=== PATIENT | male | born 1995 | race African-American/Black ===

== ENCOUNTER 2022-05-24 14:32 | Emergency (ER) | payer MEDICAID, OTHER ==
[~2022-05-24] VITALS: Ht 180.3 cm; Wt 100.0 kg
[2022-05-24] MEDS ORDERED: ONDANSETRON HCL 4MG/2ML INJ IV ONE (15:30)
[2022-05-24] MEDS ORDERED: SODIUM CHLORIDE 0.9% 1,000 ML IV ONE ×2 (15:30)
[2022-05-24] MEDS ORDERED: KETOROLAC 15MG/ML VIAL IV ONE (15:45)
[2022-05-24 16:26] LABS: BASOPHILS % 0.6 % (0.0-2.0); CHLORIDE 108 mEq/L (98-107); EOSINOPHILS % 1.4 % (0.0-5.0); HEMATOCRIT. 43.7 % (42.0-52.0); LYMPHOCYTES % 24.6 % (20.0-50.0); MEAN CORPUSCULAR HEMOGLOBIN 31.3 pg (28.0-32.0); MEAN CORPUSCULAR VOLUME 91.1 fL (80.0-94.0); MEAN PLATELET VOLUME 8.4 fl (7.4-10.4); MONOCYTES % 7.3 % (2.0-8.0); NEUTROPHILS % 66.1 % (40.0-76.0); PLATELET 272 x1000/uL (130-400); RED CELL DISTRIBUTION WIDTH 14.2 % (11.6-14.6)
[2022-05-24 16:33] LABS: ETHANOL BLOOD < 10 mg/dL
[2022-05-24] MEDS ORDERED: ONDANSETRON HCL 4MG/2ML INJ IV NR (17:15)
[2022-05-24 19:52] LABS: CLARITY URINE CLEAR (CLEAR); COLOR URINE YELLOW (YELLOW); KETONES URINE TRACE (NEGATIVE); LEUKOCYTE ESTERASE URINE NEGATIVE (NEGATIVE); NITRITE URINE NEGATIVE (NEGATIVE); OCCULT BLOOD URINE NEGATIVE (NEGATIVE); PH URINE 6.5 (4.5-8.0); PROTEIN URINE NEGATIVE (NEGATIVE); SPECIFIC GRAVITY URINE 1.028 (1.005-1.030)
[2022-05-24 20:03] LABS: *AMPHETAMINES SCREEN URINE NEGATIVE (NEGATIVE); *BARBITURATES SCREEN URINE NEGATIVE (NEGATIVE); *BENZODIAZEPINES SCREEN URINE NEGATIVE (NEGATIVE); *COCAINE SCREEN URINE NEGATIVE (NEGATIVE); CANNABINOID URINE SCREEN NEGATIVE (NEGATIVE); METHADONE URINE SCREEN NEGATIVE (NEGATIVE); OPIATES URINE SCREEN NEGATIVE (NEGATIVE); PHENCYCLIDINE URINE SCREEN NEGATIVE (NEGATIVE)
[2022-05-25] MEDS: SERTRALINE HCL 50MG TABLET PO SCH (11:19)
[2022-05-26 10:40] VITALS: BP 119/77
[2022-05-26] MEDS: SERTRALINE HCL 50MG TABLET PO SCH (10:48)
== END 2022-05-26 11:13 | disposition short-term general hospital (02) ==
LOC: ER 14:32
DX: R45.851 Suicidal ideations (principal); Z20.822 Contact with and (suspected) exposure to COVID-19
CPT/HCPCS: 36415; 71045; 80053; 80305; 80307; 80320; 80329; 81003; 83690; 84484; 85025; 87426; 93005; 96361; 96374; 96375; 99285; C9803; J1885; J2405; J7030; Z7610; G0480

== ENCOUNTER 2022-09-25 15:57 | Emergency (ER) | payer MEDICAID, OTHER ==
[~2022-09-25] VITALS: Ht 172.7 cm; Wt 91.0 kg
[2022-09-25 16:03] VITALS: O2SAT 97
[2022-09-25 17:22] LABS: INR 1.1; PROTHROMBIN TIME 12.2 sec (9.6-11.0)
[2022-09-25 17:24] LABS: BASOPHILS % 0.4 % (0.0-2.0); EOSINOPHILS % 3.1 % (0.0-5.0); HEMATOCRIT. 42.6 % (42.0-52.0); HEMOGLOBIN. 14.8 g/dL (14.0-18.0); LYMPHOCYTES % 22.5 % (20.0-50.0); MEAN CORPUSCULAR HEMOGLOBIN 33.8 pg (28.0-32.0); MEAN CORPUSCULAR HGB CONC 34.8 g/dL (31.0-37.0); MEAN CORPUSCULAR VOLUME 97.3 fL (80.0-94.0); MEAN PLATELET VOLUME 8.6 fl (7.4-10.4); MONOCYTES % 6.5 % (2.0-8.0); NEUTROPHILS % 67.5 % (40.0-76.0); PLATELET 410 x1000/uL (130-400); RED BLOOD CELL COUNT 4.37 mill/uL (4.7-6.1); RED CELL DISTRIBUTION WIDTH 13.3 % (11.6-14.6); WHITE BLOOD COUNT 6.8 x1000/uL (4.5-11.0)
[2022-09-25 17:26] LABS: CHLORIDE 111 mEq/L (98-107); INDEX HEMOLYSI 1 (1-3); INDEX ICTERIC 1 (1-4); INDEX LIPEMIC 1 (1-3); POTASSIUM 3.8 mEq/L (3.5-5.1); SODIUM 139 mEq/L (136-145)
[2022-09-25 17:38] LABS: ALANINE AMINOTRANSFERASE 89 IU/L (13-61); ALBUMIN 3.4 g/dL (3.4-5.0); ASPARTATE AMINOTRANSFERASE 69 IU/L (15-37); BILIRUBIN TOTAL 0.4 mg/dL (0.1-1.0); CALCIUM 9.2 mg/dL (8.5-10.1); CARBON DIOXIDE 25 mEq/L (21-32); GLUCOSE 97 mg/dL (70-105); NT PRO B-TYPE NATRIURETIC PEP 33 pg/mL (5-125); PROTEIN TOTAL 7.6 g/dL (6.0-8.3); TROPONIN I HIGH SENSITIVITY 6 ng/L (<78); UREA NITROGEN BLOOD 14 mg/dL (7-21)
[2022-09-25 18:40] VITALS: BP 109/59; PULSE 96; RESP 19; TEMP 98.2
== END 2022-09-25 19:02 | disposition home or self-care (01) ==
LOC: ER 15:57
DX: R04.2 Hemoptysis (principal); R06.02 Shortness of breath; F32.A Depression, unspecified; Z88.5 Allergy status to narcotic agent
CPT/HCPCS: 36415; 71045; 80053; 83880; 84484; 85025; 86850; 86900; 93005; 99285

== ENCOUNTER 2023-04-27 21:06 | Emergency (ER) | payer MEDICAID, OTHER ==
[~2023-04-27] VITALS: Ht 180.3 cm; Wt 122.0 kg
[~2023-04-27 21:06] MED LIST: APIX5TAB MT
[2023-04-27 21:15] VITALS: BP 132/71; PULSE 71; RESP 16; TEMP 98.5; O2SAT 97
[2023-04-27 22:04] LABS: BASOPHILS % 0.7 % (0.0-2.0); HEMATOCRIT. 44.8 % (42.0-52.0); HEMOGLOBIN. 15.1 g/dL (14.0-18.0); LYMPHOCYTES % 26.9 % (20.0-50.0); MEAN CORPUSCULAR HEMOGLOBIN 31.3 pg (28.0-32.0); MEAN CORPUSCULAR HGB CONC 33.8 g/dL (31.0-37.0); MEAN CORPUSCULAR VOLUME 92.7 fL (80.0-94.0); MONOCYTES % 5.7 % (2.0-8.0); NEUTROPHILS % 64.7 % (40.0-76.0); PLATELET 289 x1000/uL (130-400); RED BLOOD CELL COUNT 4.83 mill/uL (4.7-6.1); RED CELL DISTRIBUTION WIDTH 13.9 % (11.6-14.6); WHITE BLOOD COUNT 7.4 x1000/uL (4.5-11.0)
[2023-04-27 22:23] LABS: ALANINE AMINOTRANSFERASE 15 IU/L (10-49); ALBUMIN 4.9 g/dL (3.2-4.8); ASPARTATE AMINOTRANSFERASE 16 IU/L (<34); BILIRUBIN TOTAL 0.7 mg/dL (0.1-1.0); CALCIUM 9.7 mg/dL (8.7-10.4); CARBON DIOXIDE 28 mEq/L (21-32); CHLORIDE 106 mEq/L (98-107); GLUCOSE 92 mg/dL (70-105); POTASSIUM 3.7 mEq/L (3.5-5.1); SODIUM 140 mEq/L (136-145); UREA NITROGEN BLOOD 11 mg/dL (9-23)
[2023-04-27 22:27] LABS: TROPONIN I HIGH SENSITIVITY < 4 ng/L (3.0-53)
[2023-04-28] MEDS ORDERED: SODIUM CHLORIDE 0.9% 1,000 ML IV ONE
[2023-04-28 00:29] LABS: PROTHROMBIN TIME 10.8 sec (9.6-11.0)
== END 2023-04-28 00:18 | disposition left against medical advice (07) ==
LOC: ER 21:06
DX: R68.89 Other general symptoms and signs (principal); Z53.21 Procedure and treatment not carried out due to patient leaving prior to being seen by health care provider
CPT/HCPCS: 71045; 99281; 80053; 85025; 85610; 84484; 36415; 93005; J7030; 99285

== ENCOUNTER 2023-07-03 20:52 | Emergency (ER) | payer MEDICAID ==
[~2023-07-03] VITALS: Ht 180.3 cm; Wt 118.0 kg
[2023-07-03 21:16] VITALS: O2SAT 100
[2023-07-03 23:48] LABS: BASOPHILS % 0.5 % (0.0-2.0); EOSINOPHILS % 3.5 % (0.0-5.0); HEMATOCRIT. 44.8 % (42.0-52.0); HEMOGLOBIN. 15.2 g/dL (14.0-18.0); LYMPHOCYTES % 36.9 % (20.0-50.0); MEAN CORPUSCULAR HEMOGLOBIN 31.7 pg (28.0-32.0); MEAN CORPUSCULAR HGB CONC 33.9 g/dL (31.0-37.0); MEAN CORPUSCULAR VOLUME 93.4 fL (80.0-94.0); MEAN PLATELET VOLUME 9.2 fl (7.4-10.4); MONOCYTES % 6.5 % (2.0-8.0); NEUTROPHILS % 52.6 % (40.0-76.0); PLATELET 257 x1000/uL (130-400); RED CELL DISTRIBUTION WIDTH 13.6 % (11.6-14.6); WHITE BLOOD COUNT 8.7 x1000/uL (4.5-11.0)
[2023-07-04 00:08] LABS: CHLORIDE 106 mEq/L (98-107); POTASSIUM 4.3 mEq/L (3.5-5.1); SODIUM 141 mEq/L (136-145)
[2023-07-04 00:09] LABS: CARBON DIOXIDE 28 mEq/L (21-32)
[2023-07-04 00:10] LABS: CALCIUM 10.1 mg/dL (8.7-10.4)
[2023-07-04 00:14] LABS: CREATININE 1.1 mg/dL (0.6-1.3); GLUCOSE 89 mg/dL (70-105); UREA NITROGEN BLOOD 13 mg/dL (9-23)
[2023-07-04 00:18] LABS: TROPONIN I HIGH SENSITIVITY < 4 ng/L (3.0-53)
[2023-07-04 01:36] VITALS: BP 108/68; PULSE 51; RESP 20; TEMP 98.6
== END 2023-07-04 01:49 | disposition home or self-care (01) ==
LOC: ER 20:52
DX: R55 Syncope and collapse (principal); Z88.5 Allergy status to narcotic agent; Z00.00 Encounter for general adult medical examination without abnormal findings
CPT/HCPCS: 36415; 71045; 80048; 84484; 85025; 93005; 99285

== ENCOUNTER 2023-10-13 22:39 | Emergency (ER) | payer MEDICAID ==
[~2023-10-13] VITALS: Ht 167.6 cm; Wt 120.0 kg
[2023-10-13 22:45] VITALS: O2SAT 97
[2023-10-14 02:45] VITALS: BP 110/56; PULSE 70; RESP 17; TEMP 36.78072; O2SAT 97
== END 2023-10-14 03:30 | disposition home or self-care (01) ==
LOC: ER 22:39
DX: R06.02 Shortness of breath (principal); Z76.0 Encounter for issue of repeat prescription; F41.9 Anxiety disorder, unspecified; F32.9 Major depressive disorder, single episode, unspecified
CPT/HCPCS: 71045; 93005; 93970; 99285

== ENCOUNTER 2023-11-10 17:04 | Emergency (ER) | payer MEDICAID, OTHER ==
[~2023-11-10] VITALS: Ht 185.4 cm; Wt 121.0 kg
[2023-11-10 17:14] VITALS: BP 113/68; PULSE 69; RESP 16; TEMP 98.1; O2SAT 97
== END 2023-11-10 19:01 | disposition left against medical advice (07) ==
LOC: ER 17:04
DX: R11.2 Nausea with vomiting, unspecified (principal); Z53.21 Procedure and treatment not carried out due to patient leaving prior to being seen by health care provider

== ENCOUNTER 2024-01-19 11:37 | Emergency (ER) | payer MEDICAID ==
[~2024-01-19] VITALS: Ht 180.3 cm; Wt 114.7 kg
[2024-01-19 11:59] VITALS: O2SAT 99
[2024-01-19 12:37] LABS: BASOPHILS % 0.6 % (0.0-2.0); EOSINOPHILS % 2.4 % (0.0-5.0); HEMATOCRIT. 45.5 % (42.0-52.0); HEMOGLOBIN. 14.9 g/dL (14.0-18.0); LYMPHOCYTES % 31.9 % (20.0-50.0); MEAN CORPUSCULAR HEMOGLOBIN 30.7 pg (28.0-32.0); MEAN CORPUSCULAR HGB CONC 32.8 g/dL (31.0-37.0); MEAN CORPUSCULAR VOLUME 93.7 fL (80.0-94.0); MONOCYTES % 6.8 % (2.0-8.0); NEUTROPHILS % 58.3 % (40.0-76.0); PLATELET 266 x1000/uL (130-400); RED BLOOD CELL COUNT 4.86 mill/uL (4.7-6.1); RED CELL DISTRIBUTION WIDTH 13.6 % (11.6-14.6); WHITE BLOOD COUNT 6.7 x1000/uL (4.5-11.0)
[2024-01-19 12:48] LABS: CHLORIDE 109 mEq/L (98-107); POTASSIUM 4.3 mEq/L (3.5-5.1); SODIUM 141 mEq/L (136-145)
[2024-01-19 12:49] LABS: CARBON DIOXIDE 30 mEq/L (21-32)
[2024-01-19 12:50] LABS: CALCIUM 9.8 mg/dL (8.7-10.4)
[2024-01-19 12:55] LABS: CREATININE 1.1 mg/dL (0.6-1.3); GLUCOSE 95 mg/dL (70-105); UREA NITROGEN BLOOD 17 mg/dL (9-23)
[2024-01-19 13:25] LABS: TROPONIN I HIGH SENSITIVITY < 4 ng/L (3.0-53)
[2024-01-19] MEDS ORDERED: ACET-2708 MT (13:38)
[2024-01-19 14:30] VITALS: BP 134/68; PULSE 62; RESP 16; TEMP 36.66960; O2SAT 99
== END 2024-01-19 14:33 | disposition home or self-care (01) ==
LOC: ER 11:49
DX: M79.604 Pain in right leg (principal); M79.605 Pain in left leg; Z88.5 Allergy status to narcotic agent
CPT/HCPCS: 36415; 73590; 80048; 84484; 85025; 93005; 99285

== ENCOUNTER 2024-02-16 11:37 | Emergency (ER) | payer MEDICAID ==
[~2024-02-16] VITALS: Ht 188 cm; Wt 99.7 kg
[~2024-02-16 11:37] MED LIST changes: +ACET-2708 MT
[2024-02-16 12:17] VITALS: TEMP 98.2; O2SAT 100
[2024-02-16 12:59] LABS: BASOPHILS % 0.3 % (0.0-2.0); CHLORIDE 106 mEq/L (98-107); EOSINOPHILS % 1.7 % (0.0-5.0); HEMATOCRIT. 45.2 % (42.0-52.0); HEMOGLOBIN. 14.8 g/dL (14.0-18.0); MEAN CORPUSCULAR HEMOGLOBIN 30.8 pg (28.0-32.0); MEAN CORPUSCULAR HGB CONC 32.7 g/dL (31.0-37.0); MEAN PLATELET VOLUME 9.1 fl (7.4-10.4); MONOCYTES % 7.4 % (2.0-8.0); NEUTROPHILS % 58.6 % (40.0-76.0); PLATELET 270 x1000/uL (130-400); POTASSIUM 4.5 mEq/L (3.5-5.1); RED BLOOD CELL COUNT 4.81 mill/uL (4.7-6.1); RED CELL DISTRIBUTION WIDTH 13.8 % (11.6-14.6); SODIUM 140 mEq/L (136-145); WHITE BLOOD COUNT 6.2 x1000/uL (4.5-11.0)
[2024-02-16 13:00] LABS: CARBON DIOXIDE 28 mEq/L (21-32)
[2024-02-16 13:01] LABS: CALCIUM 9.6 mg/dL (8.7-10.4)
[2024-02-16 13:05] LABS: CREATININE 1.1 mg/dL (0.6-1.3); GLUCOSE 94 mg/dL (70-105)
[2024-02-16 13:06] LABS: UREA NITROGEN BLOOD 13 mg/dL (9-23)
[2024-02-16 14:04] VITALS: BP 128/66; PULSE 67; RESP 17; O2SAT 98
== END 2024-02-16 14:08 | disposition home or self-care (01) ==
LOC: ER 11:45
DX: R56.9 Unspecified convulsions (principal); F19.90 Other psychoactive substance use, unspecified, uncomplicated; Z88.5 Allergy status to narcotic agent
CPT/HCPCS: 36415; 80048; 85025; 85379; 99284

== ENCOUNTER 2024-11-06 12:01 | Emergency (ER) | payer MEDICAID ==
[~2024-11-06] VITALS: Ht 180.3 cm; Wt 119.0 kg
[~2024-11-06 12:01] MED LIST changes: -ACET-2708 MT; -APIX5TAB MT; +CHOL-36 PO; +CYAN-50 PO; +DULO60CA64 PO; +HYDR-3782 PO; +LORA10TA7 PO; +ONDA-239 PO; +PANT20TA17 PO; +RIVA20TA PO; +TC1U15 TOP; +[UNRECOGNIZED DRUG - CODE] TP
[2024-11-06 12:06] VITALS: O2SAT 98
[2024-11-06] MEDS: PANTOPRAZOLE 80 MG in SODIUM CHLORIDE 0.9% 100 ML IV ONE (12:15)
[2024-11-06] MEDS: SODIUM CHLORIDE 0.9% 1,000 ML IV ONE (12:45)
[2024-11-06 12:55] LABS: BASOPHILS % 0.6 % (0.0-2.0); EOSINOPHILS % 1.3 % (0.0-5.0); HEMATOCRIT. 44.2 % (42.0-52.0); HEMOGLOBIN. 14.6 g/dL (14.0-18.0); LYMPHOCYTES % 36.2 % (20.0-50.0); MEAN PLATELET VOLUME 8.7 fl (7.4-10.4); MONOCYTES % 6.8 % (2.0-8.0); NEUTROPHILS % 55.1 % (40.0-76.0); PLATELET 262 x1000/uL (130-400); RED BLOOD CELL COUNT 4.71 mill/uL (4.7-6.1); RED CELL DISTRIBUTION WIDTH 13.4 % (11.6-14.6)
[2024-11-06 13:09] LABS: CREATININE 1.1 mg/dL (0.6-1.3)
[2024-11-06 13:10] LABS: INR 1.1; UREA NITROGEN BLOOD 11 mg/dL (9-23)
[2024-11-06 13:11] LABS: ASPARTATE AMINOTRANSFERASE 17 IU/L (<34)
[2024-11-06 13:12] LABS: BILIRUBIN DIRECT 0.2 mg/dL (<=3.0); BILIRUBIN TOTAL 0.8 mg/dL (0.1-1.0); PROTEIN TOTAL 6.5 g/dL (6.0-8.3)
[2024-11-06 14:44] VITALS: BP 112/60; PULSE 62; RESP 17; TEMP 36.7; O2SAT 98
== END 2024-11-06 14:50 | disposition home or self-care (01) ==
LOC: ER 12:01 → CMPBEDREQ 11-07 07:52
DX: K92.2 Gastrointestinal hemorrhage, unspecified (principal); Q98.4 Klinefelter syndrome, unspecified; Z79.899 Other long term (current) drug therapy; Z88.5 Allergy status to narcotic agent
CPT/HCPCS: 99284; 96365; 96366; 80076; 80048; 83690; 85025; 85610; 85730; 86850; 86900; 86901; 36415; J2470; J7050; J7030

== ENCOUNTER 2024-12-05 19:27 | Emergency (ER) | payer MEDICAID ==
[~2024-12-05] VITALS: Ht 180.3 cm; Wt 119.0 kg
[2024-12-05 19:48] VITALS: O2SAT 98
[2024-12-05 20:03] VITALS: BP 115/71; PULSE 76; RESP 16; TEMP 36.9; O2SAT 98
== END 2024-12-05 20:47 | disposition left against medical advice (07) ==
LOC: ER 19:27
DX: M79.672 Pain in left foot (principal); I51.9 Heart disease, unspecified
CPT/HCPCS: 99281

== ENCOUNTER 2025-01-23 18:11 | Emergency (ER) | payer MEDICAID ==
[~2025-01-23] VITALS: Ht 180.3 cm; Wt 118.0 kg
[2025-01-23 18:39] VITALS: O2SAT 97
[2025-01-23 20:37] LABS: BASOPHILS % 1.4 % (0.0-2.0); EOSINOPHILS % 2.2 % (0.0-5.0); HEMATOCRIT. 47.8 % (42.0-52.0); HEMOGLOBIN. 15.4 g/dL (14.0-18.0); LYMPHOCYTES % 35.1 % (20.0-50.0); MONOCYTES % 4.9 % (2.0-8.0); NEUTROPHILS % 56.4 % (40.0-76.0); RED BLOOD CELL COUNT 5.09 mill/uL (4.7-6.1); RED CELL DISTRIBUTION WIDTH 13.7 % (11.6-14.6)
[2025-01-23 20:58] LABS: CREATININE 1.1 mg/dL (0.6-1.3); UREA NITROGEN BLOOD 16 mg/dL (9-23)
[2025-01-23 21:07] LABS: INR 1.0
[2025-01-23 21:09] LABS: CLARITY URINE CLEAR (CLEAR); COLOR URINE YELLOW (YELLOW); GLUCOSE URINE NEGATIVE (NEGATIVE); KETONES URINE NEGATIVE (NEGATIVE); LEUKOCYTE ESTERASE URINE NEGATIVE (NEGATIVE); NITRITE URINE NEGATIVE (NEGATIVE); OCCULT BLOOD URINE NEGATIVE (NEGATIVE); PH URINE 6.5 (4.5-8.0); PROTEIN URINE NEGATIVE (NEGATIVE); SPECIFIC GRAVITY URINE 1.032 (1.005-1.030); UROBILINOGEN URINE 0.2 E.U./dL (0.2-1.0)
[2025-01-23 21:31] VITALS: BP 102/57; PULSE 64; RESP 18; TEMP 36.7; O2SAT 98
[2025-01-23 21:49] LABS: MEAN PLATELET VOLUME 9.1 fl (7.4-10.4); PLATELET 248 x1000/uL (130-400)
== END 2025-01-23 21:32 | disposition home or self-care (01) ==
LOC: ER 18:11
DX: K92.2 Gastrointestinal hemorrhage, unspecified (principal); Z79.899 Other long term (current) drug therapy; Z88.5 Allergy status to narcotic agent
CPT/HCPCS: 36415; 71045; 80048; 81003; 85025; 86850; 86900; 99284